=== PATIENT | male | born 1945 | race Hispanic/Latino ===

== ENCOUNTER 2018-09-15 09:58 | Outpatient (CLI) | payer MEDICARE, OTHER | END 2018-09-15 09:59 | disposition home or self-care (01) | LOC: C.RADIC 09:58 ==

== ENCOUNTER 2018-12-01 12:54 | Outpatient (CLI) | payer MEDICARE, OTHER | END 2018-12-01 12:55 | disposition home or self-care (01) | LOC: C.RADH 12:54 | DX: I10 Essential (primary) hypertension (principal) ==